=== PATIENT | male | born 1965 | race Caucasian/White ===

== ENCOUNTER 2016-11-06 10:24 | Day surgery (SDC) | payer MEDICARE ==
[~2016-11-06] VITALS: Ht 182.9 cm; Wt 106.1 kg
[~2016-11-06 10:24] MED LIST: FLEXERIL10 MG PO; LEADER OMEPRAZO20 MG PO; MEDROL 4MG. DOSE4 MG PO; MORPHINE SUL10 MG/M1 IL; OXYCODONE HCL20 MG PO; OXYCODONE HYDRO PO; PERCOCET 10 MG1 EACH PO; RANITIDINE HCL150 MG PO; TALWIN NX 50MG50 MG PO; ZITHROMAX Z PA250 MG PO
--- NOTE | 2016-11-06 12:02 | Operative Note ---
Colonoscopy (Martín) Procedure date: 11/06/16 Date of : 67 Procedure:Colonoscopy Colonoscopy with cold snare polypectomy Indications: Mr. Casarez is a 51-year-old gentleman who is here for initial screening colonoscopy. The patient has had some bowel irregularity. His mother had colon problems that he reports no family history of colon cancer. He has had some nausea, bloating, fullness and dyspepsia. The patient reports no abdominal pain, weight loss or rectal bleeding. Performing Provider: Vicenta Resendiz MD Referrring Provider: Liborio Greenfield M.D. Sedation: MAC sedation Procedure: Prior to the procedure, a history and physical exam was performed, and patient medications and allergies were reviewed. The risks and benefits of the procedure and the sedation options and risks were discussed with the patient. All questions were answered and informed consent was obtained. Patient identification and proposed procedure were verified by the physician and the nurse. The patient was placed in a left lateral decubitus position. Throughout the procedure, the patient's blood pressure, pulse, and oxygen saturations were monitored continuously. Findings: On digital rectal examination there was normal rectal tone. There were no external hemorrhoids. The prostate was 2+, smooth, soft, symmetric without nodules. The colonoscope was introduced through the anal canal to the rectum and advanced to the cecum. The ileocecal valve and appendiceal orifice were identified. The scope was advanced a short distance into the ileum which appeared grossly normal. The scope was then withdrawn into the colon. There were 4 colon polyps identified in the cecum 1, descending 1 and sigmoid 2. These ranged in size from 6-9 mm and were all removed via cold snare polypectomy. There were extensive scattered diverticuli throughout the descending and sigmoid colon (LEFT colon). The rectum itself was normal. Upon retroflexion within the rectum there were grade 1-2 internal hemorrhoids. Impressions: 1. Colonic polyps 4 2. Extensive left-sided diverticulosis 3. Grade 1-2 internal hemorrhoids Recommendations: I will follow up the polyp pathology and recommend repeat colonoscopy again in 3 -5 years based upon the polyp histology. I would encourage a fiber bowel regimen on a long-term daily maintenance basis. Complications: None EBL (ml): 0 at 1201
--- NOTE | 2016-11-06 12:38 | Anesthesia Record ---
Anesthesia Record Part II Discharge time: 1230 Destination: Same day surgery PACU nurse assessment review? Yes Patient is: Stable Anesthesia complications? No at 1234
--- NOTE | 2016-11-06 12:38 | Anesthesia Record ---
Anesthesia Record Part I Total IV fluids: 500 EBL (ml): 0 Urine Output: 0 B/P: 105/66 % SaO2: 92 Pulse: 85 Resps: 16 Temp: 98.5 Patient is: Drowsy, Stable Stable to PACU at: 1200 at 1238
--- NOTE | 2016-11-06 12:39 | Anesthesia Record ---
Anesthesia Record Part I Total IV fluids: 400 EBL (ml): 0 Urine Output: 0 B/P: 124/66 % SaO2: 96 Pulse: 80 Resps: 16 Temp: 97.9 Patient is: Drowsy, Stable Stable to PACU at: 1121 at 1233
[2016-11-06 13:05] VITALS: BP 126/78
[2016-11-06 13:09] LABS: BILIRUBIN, INDIRECT 0.4 mg/dL (0-0.9)
== END 2016-11-06 12:55 | disposition home or self-care (01) ==
LOC: SDC 10:24
PROVIDERS: Internal Medicine Gastroenterology
PROC: 0DBN8ZX Excision of Sigmoid Colon, Via Natural or Artificial Opening Endoscopic, Diagnostic (ICD-10-PCS; 2016-11-06)
PROC: 0DBM8ZX Excision of Descending Colon, Via Natural or Artificial Opening Endoscopic, Diagnostic (ICD-10-PCS; 2016-11-06)
PROC: 0DBH8ZX Excision of Cecum, Via Natural or Artificial Opening Endoscopic, Diagnostic (ICD-10-PCS; principal; 2016-11-06 11:30)
DX: Z12.11 Encounter for screening for malignant neoplasm of colon (principal); D12.0 Benign neoplasm of cecum; D12.4 Benign neoplasm of descending colon; D12.5 Benign neoplasm of sigmoid colon; K57.30 Diverticulosis of large intestine without perforation or abscess without bleeding; K64.1 Second degree hemorrhoids

== ENCOUNTER → 2017-02-17 | Outpatient (CLI) | payer MEDICARE ==
[~2017-02-17] MED LIST changes: +OMEPRAZOLE40 MG PO
[2017-02-17 15:50] LABS: AMPHETAMINES/METAMPHETAMINES NEGATIVE ng/mL (<1000)
[2017-02-23 07:38] LABS: Codeine Negative (Cutoff=100); Hydrocodone Negative (Cutoff=100); Hydromorphone Negative (Cutoff=100); Morphine Positive (.); Opiates Positive (.)
== END ==
LOC: LAB 14:36
PROVIDERS: Anesthesiology
DX: Z79.899 Other long term (current) drug therapy (principal)

== ENCOUNTER → 2017-02-19 | Day surgery (SDC) | payer MEDICARE ==
[~2017-02-19] VITALS: Ht 182.9 cm; Wt 108.9 kg
[2017-02-19 10:05] VITALS: BP 121/78
[2017-02-19 10:32] VITALS: BP 121/78
[2017-02-19 10:33] VITALS: BP 120/91
--- NOTE | 2017-02-19 10:41 | Procedure Note ---
Procedure detail Date of procedure: 02/19/17 Anesthesiologist: Teofilo Washington M.D. Complications: None Pre-procedure diagnosis: Dejected disease of lumbar spinal lumbar radiculopathy symptoms and postlaminectomy syndrome Post-procedure diagnosis: Same Indications for procedure: This patient is a pleasant 51-year-old white male who we are treating for postlaminectomy syndrome with lumbar radiculopathy symptoms. His intrathecal morphine pain pump. He is currently 0.1 mg per day. He is doing well he is more active and is having some increased pain we will increase him 20 percent today to 1.2 mg per day. We will leave his PTC at 0.1 mg up to 5 times a day with a 3 hour lockout. He has a normal gait. Motor strength of the lower extremity is 5 over 5. There is no gross sensory deficit. Procedure detail: Pain pump refill Informed consent was obtained and the risk and benefits of the procedure was explained to the patient. The patient was taken to the procedure room. Under fluoroscopic guidance after prepping the patient with ChloraPrep we accessed the pump with a 22-gauge needle. Approximately 6 mL the pump mixture was withdrawn and discarded. The pump was then refilled with a 20 mL mixture of intrathecal morphine 10 mg per mL. The pump was interrogated and increase to 1.2 mg per day. PA boluses a 0.1 mg up to 5 times a day with a 3 hour lockout. The patient tolerated the procedure well with no complication. Plan and disposition: We will follow-up with him at his next pump refill. If he has any problems or questions he is to call me in the pain clinic. at 1046
[2017-02-19 10:46] VITALS: BP 114/70
--- NOTE | 2017-02-23 08:56 | RADIOLOGY REPORT PS360 ---
US RUQ-(ABD LTD)1ORGAN/QUAD/FU HISTORY: ELEVATED ALK PROS ORDERING PHYSICIAN: JUAN HERNANDEZ APRN PATIENT AGE: 51 years COMPARISON: None FINDINGS: PANCREAS:Unremarkable. No obvious mass or abnormal fluid collection. No ductal dilatation LIVER:No focal liver lesions demonstrated. Homogeneous echogenicity. No intrahepatic biliary ductal dilatation evident. There is increased echogenicity of the liver suggesting hepatic steatosis. Portal vein is not enlarged and there is appropriate directional blood flow within the portal vein. RIGHT KIDNEY:Unremarkable. Normal size and echogenicity. No hydronephrosis GALLBLADDER:Prior cholecystectomy. Common bile duct is normal at 3 mm IMPRESSION: Prior cholecystectomy with mild hepatic steatosis otherwise negative right upper quadrant ultrasound
== END ==
LOC: LAB 07:54 → RAD 07:54 → SDC 09:56
DX: M51.16 Intervertebral disc disorders with radiculopathy, lumbar region (principal); Z79.899 Other long term (current) drug therapy